=== PATIENT | female | born 1990 | race Caucasian/White ===

== ENCOUNTER 2021-09-23 07:52 | Inpatient (IN) ==
[2021-09-23] MEDS ORDERED: Lidocaine 1% 20 ML MDV ID PRN (08:26)
[2021-09-23] MEDS ORDERED: Metoclopramide 10 MG/2 ML VIAL IVP PRN ×2 (08:26→19:16)
[2021-09-23] MEDS ORDERED: Famotidine 20 MG/2 ML VIAL IVP PRN (08:26)
[2021-09-23] MEDS ORDERED: Ondansetron 4 MG/2 ML VIAL IVP PRN ×2 (08:26→19:16)
[2021-09-23] MEDS ORDERED: Azithromycin 500 MG in 0.9 % Sodium Chloride 250 ML IVPB PRN (08:26)
[2021-09-23] MEDS ORDERED: Naloxone 0.4 MG/ML INJ IVP PRN (08:26)
[2021-09-23] MEDS ORDERED: Oxytocin 20 units/ LR 1000 mL 20 UNIT/1,000 ML BAG IVC SCH ×2 (08:30→19:16)
[2021-09-23 09:47] LABS: Basophils % 0.2 %; Eosinophils # 0.3 K/mcL (0.0-0.6); Eosinophils % 3.1 %; Hematocrit 35.4 % (35.3-44.9); Hemoglobin 11.7 g/dL (11.5-15.4); Lymphocytes # 1.7 K/mcL (0.6-4.6); Lymphocytes % 18.4 %; Mean Corpuscular HGB Conc 33.1 g/dL (31.6-35.5); Mean Corpuscular Hemoglobin 29.5 pg (28.0-33.3); Mean Corpuscular Volume 89.4 fL (83.0-100.0); Mean Platelet Volume 11.4 fL (9.4-12.4); Monocytes # 0.9 K/mcL (0.0-1.3); Monocytes % 10.1 %; Neutrophils # 6.1 K/mcL (1.6-8.9); Platelet Count 135 K/mcL (140-400); Red Blood Count 3.96 M/mcL (3.82-4.97); Red Cell Distribution Width 14.9 % (11.5-14.5); Segmented Neutrophils % 67.2 %; White Blood Count 9.1 K/mcL (4.3-11.1)
[2021-09-23 10:56] LABS: Amphetamine Screen,Urine Negative ng/mL (Cutoff=1000); Barbiturate Screen,Urine Negative ng/mL (Cutoff=200); Benzodiazepines Screen,Urine Negative ng/mL (Cutoff=200); Cannabinoid Screen,Urine Negative ng/mL (Cutoff = 50); Cocaine Screen,Urine Negative ng/mL (Cutoff= 300); Opiate Screen,Urine Negative ng/mL (Cutoff=300); Phencyclidine Screen,Urine Negative ng/mL (Cutoff=25)
[2021-09-23 11:25] LABS: Influenza A PCR Negative (Negative); Influenza B PCR Negative (Negative); Resp. Syncytial Virus PCR Negative (Negative)
[2021-09-23 11:26] LABS: SARS-CoV-2 by PCR (In House) Negative (Negative)
[2021-09-23 13:07] LABS: Creatinine,Urine 156 mg/dL; Protein/Creatinine Ratio,Urine 0.15 mg/mg (0.00-0.20)
[2021-09-23 13:25] LABS: Alanine Aminotransferase 18 Units/L (7-52); Aspartate Amino Transferase 39 Units/L (13-39); BUN/Creatinine Ratio 14 (6-26); Blood Urea Nitrogen 13 mg/dL (6-20); Lactate Dehydrogenase 427 Units/L (140-271); Uric Acid 8.8 mg/dL (2.3-7.6); eGFR For African Americans > 60 (> 60); eGFR For Non-African Americans > 60 (> 60)
[2021-09-23] MEDS ORDERED: CeFAZolin 2,000 MG/120 ML BAG IVPB ONE (14:54)
[2021-09-23] MEDS ORDERED: *HR* FentaNYL (PF) 100 MCG/2 ML VIAL ONE (15:09)
[2021-09-23] MEDS ORDERED: *HR* Morphine Sulfate/PF 10 MG/10 ML AMPUL ONE (15:09)
[2021-09-23] MEDS ORDERED: Ondansetron 4 MG/2 ML VIAL ONE (15:10)
[2021-09-23] MEDS ORDERED: Acetaminophen IV 1,000 MG/100 ML BAG IVPB ONE (15:11)
[2021-09-23] MEDS ORDERED: Ketorolac 30 MG/ML VIAL ONE (15:11)
[2021-09-23] MEDS ORDERED: EPHEDrine 50 MG/ML VIAL ONE (15:54)
[2021-09-23] MEDS ORDERED: *HR* HYDROmorphone PF 0.5 MG/0.5 ML SYRINGE IVP PRN (18:10)
[2021-09-23] MEDS ORDERED: *HR* HYDROmorphone (PF) 1 MG/ML SYRINGE ONE (18:23)
[2021-09-23] MEDS ORDERED: NIFEdipine Immed Rel 10 MG CAPSULE PO ONE (18:43)
[2021-09-23] MEDS ORDERED: Rho Immune Globulin 1,500 UNIT SYRINGE IM ONE (19:16)
[2021-09-23] MEDS: Simethicone 80 MG TAB.CHEW PO PRN (22:16)
[2021-09-23] MEDS: cephALEXin 500 MG CAPSULE PO SCH (22:17)
[2021-09-23] MEDS: Ibuprofen 600 MG TABLET PO SCH (22:17)
[2021-09-23] MEDS: Acetaminophen 325 MG TABLET PO SCH (22:18)
[2021-09-23] MEDS: *HR* OxyCODONE Immed Rel 5 MG TABLET PO PRN (22:18)
[2021-09-23] MEDS: Oxytocin 20 units/ LR 1000 mL 20 UNIT/1,000 ML BAG IVC SCH (23:51)
[2021-09-24] MEDS: *HR* OxyCODONE Immed Rel 5 MG TABLET PO PRN ×3 (02:48→22:41)
[2021-09-24 04:09] LABS: Basophils % 0.3 %; Eosinophils # 0.2 K/mcL (0.0-0.6); Eosinophils % 1.7 %; Hematocrit 32.9 % (35.3-44.9); Hemoglobin 10.6 g/dL (11.5-15.4); Immature Granulocytes % 0.6 % (0-4); Lymphocytes # 1.6 K/mcL (0.6-4.6); Lymphocytes % 13.8 %; Mean Corpuscular HGB Conc 32.2 g/dL (31.6-35.5); Mean Corpuscular Volume 90.1 fL (83.0-100.0); Mean Platelet Volume 11.3 fL (9.4-12.4); Monocytes # 0.6 K/mcL (0.0-1.3); Monocytes % 5.4 %; Neutrophils # 8.9 K/mcL (1.6-8.9); Platelet Count 119 K/mcL (140-400); Red Blood Count 3.65 M/mcL (3.82-4.97); Red Cell Distribution Width 14.9 % (11.5-14.5); Segmented Neutrophils % 78.2 %; White Blood Count 11.3 K/mcL (4.3-11.1)
[2021-09-24] MEDS: Ibuprofen 600 MG TABLET PO SCH ×4 (04:44→22:40)
[2021-09-24] MEDS: Acetaminophen 325 MG TABLET PO SCH ×4 (04:44→22:41)
[2021-09-24] MEDS: cephALEXin 500 MG CAPSULE PO SCH ×3 (08:25→20:21)
[2021-09-24] MEDS: Prenatal Vit/FA 1 EACH TABLET PO SCH (08:26)
[2021-09-24] MEDS ORDERED: PRENATAL VITAMIN PO SCH (09:00)
[2021-09-24] MEDS: Ringers Solution, Lactated 1,000 ML IVC SCH ×2 (20:32→21:48)
[2021-09-24] MEDS: Oxytocin 20 units/ LR 1000 mL 20 UNIT/1,000 ML BAG IVC SCH (21:50)
[2021-09-24] MEDS: Simethicone 80 MG TAB.CHEW PO PRN (22:40)
[2021-09-25] MEDS: *HR* OxyCODONE Immed Rel 5 MG TABLET PO PRN (02:50)
[2021-09-25] MEDS: Ringers Solution, Lactated 1,000 ML IVC SCH (05:22)
[2021-09-25] MEDS: Ibuprofen 600 MG TABLET PO SCH ×2 (05:24→07:33)
[2021-09-25] MEDS: Acetaminophen 325 MG TABLET PO SCH (05:24)
[2021-09-25] MEDS: Prenatal Vit/FA 1 EACH TABLET PO SCH (07:33)
[2021-09-25] MEDS: cephALEXin 500 MG CAPSULE PO SCH (07:33)
[2021-09-25 08:10] VITALS: BP 101/69; PULSE 70; TEMP 98.2; O2SAT 97
== END 2021-09-25 10:41 | disposition home or self-care (01) | DRG 788 ==
LOC: 1NENULAB 07:52 → 1NENUOBS 18:49
PROVIDERS: ADMIT Student in an Organized Health Care Education/Training Program; ATTEND Student in an Organized Health Care Education/Training Program